=== PATIENT | male | born 1970 | race Caucasian/White ===

== ENCOUNTER 2022-12-29 10:56 | Emergency (ER) | payer OTHER, SELFPAY ==
--- NOTE | ~2022-12-29 | XR_ITS ---
EXAMINATION: XR knee RT min 4V DATE: 12/29/2022 11:35 INDICATION: Right knee pain and swelling. TECHNIQUE: 4 views of right knee were obtained. COMPARISON: None. FINDINGS: Bone alignment is normal. No fracture. There is mild osteoarthritis of medial and lateral c ompartments and moderate osteoarthritis of patellofemoral compartment. No knee joint effusion. IMPRESSION: 1. Moderate right knee osteoarthritis. Reviewed, dictated and finalized at location A.
[2022-12-29 11:09] VITALS: BP 165/102; PULSE 96; RESP 14; TEMP 36.4; O2SAT 98
[2022-12-29] MEDS: KETOROLAC (*BKC) 60 MG/2 ML VIAL IM (11:52)
--- NOTE | 2022-12-29 12:03 | ED.LOWEXIN ---
HPI - Extremity Injury (Lower) General Chief Complaint: Extremity Injury, Lower Stated Complaint: right knee pain, no specific injury Time Seen by Provider: 12/29/22 11:24 Source: patient Mode of arrival: ambulatory Limitations: no limitations History of Present Illness HPI Narrative: Patient is a 52-year-old male who presents ED with report of right knee pain. Patient reports having issues with his right knee since 1995. He reports having periodic episodes of worsening pain and swelling. He states the current episode of pain and swelling began about 2 weeks ago. Pain seems to be localized around and under patella. Patient reports he recently went to [place] and did more walking than usual. His knee was bothering him slightly before the trip, but has progressively worse since then. He is able to move and bend his knee, but complains of pain more with bearing weight. Reports having intermittent swelling to right knee. Denies numbness or tingling. Denies direct injury. Denies redness or warmth. Denies fevers. Denies calf pain. [facility] typically [facility]. Related Data Allergies Allergy/AdvReac Type Severity Reaction Status Date / Time No Known Allergies Allergy Verified 12/29/22 11:48 Review of Systems Review of Systems: CONSTITUTIONAL: Denies fever, chills, or sweats. SKIN: See HPI. MUSCULOSKELETAL: See HPI. NEUROLOGIC: Denies tingling, numbness, or weakness. All systems reviewed & are unremarkable except as noted in HPI and below PMFSH Past Medical History Medical History No pertinent past medical history Surgical History Surgical History (Updated 12/29/22 @ 13:48 by Shannan Benito PA-C) No pertinent past surgical history Social History Social History (Updated 12/29/22 @ 13:48 by Shannan Benito PA-C) Smoking status: Never smoker Exam Narrative: GENERAL: Well appearing, obese with BMI of 38, non-toxic, in no acute distress. HEAD: Normocephalic, atraumatic. NECK: Supple. No adenopathy, no masses. RESPIRATORY: Airway patent, respirations nonlabored. CARDIOVASCULAR: Regular rate and rhythm without murmurs, rubs, or gallops. Pedal pulses 2+ and equal bilaterally. MUSCULOSKELETAL: Moves all extremities. No gross deformities. Mild limitation in flexion of right knee due to discomfort, but essentially full range of motion. Minimal swelling noted to anterior right knee. No redness or warmth. Tenderness to palpation surrounding patella of right knee. No calf tenderness. No asymmetric edema of lower leg. No wounds. SKIN: Warm, dry, normal color. No rashes. NEURO: A&O X3. Speech clear. Cranial nerves II-XII grossly intact. Steady gait. No ataxic movements. PSYCHIATRIC: Appropriate mood and affect. Normal interaction. Course Vital Signs Vital signs: Vital Signs Temperature 97.6 F 12/29/22 11:09 Pulse Rate 96 12/29/22 11:09 Respiratory Rate 14 12/29/22 11:09 Blood Pressure 165/102 H 12/29/22 11:09 Pulse Oximetry 98 12/29/22 11:09 Oxygen Delivery Room Air 12/29/22 11:09 Temperature 97.6 F 12/29/22 11:09 Pulse Rate 96 12/29/22 11:09 Respiratory Rate 14 12/29/22 11:09 Blood Pressure 165/102 H 12/29/22 11:09 Pulse Oximetry 98 12/29/22 11:09 Oxygen Delivery Room Air 12/29/22 11:09 MDM - Extremity Injury (Lower) MDM Narrative Medical decision making narrative: Patient presented to ED with 2-week history of right knee pain, acute on chronic, issues with the same knee in past previously. Patient's injury is consistent with musculoskeletal etiology. No signs of neurologic or vascular compromise on physical examination. Good pedal pulses. Range of motion preserved. No signs of infection, no erythema or warmth. Low suspicion for septic joint. Compartments are soft without signs of compartment syndrome. No pain or asymmetric swelling in the low
== END 2022-12-29 13:15 | disposition home or self-care (01) ==
PROVIDERS: Emergency Provider Physician Assistant
DX: S86.911A Strain of unspecified muscle(s) and tendon(s) at lower leg level, right leg, initial encounter (principal); M17.11 Unilateral primary osteoarthritis, right knee; X58.XXXA Exposure to other specified factors, initial encounter
CPT/HCPCS: 73564; 96372; 99283; J1885

== ENCOUNTER 2024-03-17 08:42 | Emergency (ER) | payer OTHER, SELFPAY ==
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
[2024-03-17 08:49] VITALS: BP 149/89; PULSE 85; RESP 15; TEMP 36.9; O2SAT 96
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
== END 2024-03-17 10:28 | disposition home or self-care (01) ==
PROVIDERS: Emergency Provider Nurse Practitioner Family
DX: S19.9XXA Unspecified injury of neck, initial encounter (principal); M47.812 Spondylosis without myelopathy or radiculopathy, cervical region; V49.40XA Driver injured in collision with unspecified motor vehicles in traffic accident, initial encounter
CPT/HCPCS: 70450; 72125; 99284